=== PATIENT | male | born 1935 | race Caucasian/White ===

== ENCOUNTER 2019-07-18 10:40 | Emergency (ER) | payer MEDICARE ==
[~2019-07-18] VITALS: Ht 177.8 cm; Wt 86.4 kg
[2019-07-18 10:41] VITALS: Ht 177.8 cm; Wt 86.4 kg
[2019-07-18] MEDS ORDERED: ZYLOPRIM100 MG PO (10:43)
[2019-07-18] MEDS ORDERED: XANAX2 MG PO (10:43)
[2019-07-18] MEDS ORDERED: ASPIRIN EC325 M1 PO (10:43)
[2019-07-18] MEDS ORDERED: COENZYME Q10200 MG PO (10:44)
[2019-07-18] MEDS ORDERED: COREG 3.1253.125 MG PO (10:44)
[2019-07-18] MEDS ORDERED: SMZ-TMP DS 800-1 TAB PO (10:45)
[2019-07-18] MEDS ORDERED: VITAMIN B-12500 MCG PO (10:46)
[2019-07-18] MEDS ORDERED: PROSCAR5 MG PO (10:46)
[2019-07-18] MEDS ORDERED: LEXAPRO10 MG PO (10:46)
[2019-07-18] MEDS ORDERED: FISH OIL 1,0001 CA1 PO (10:46)
[2019-07-18] MEDS ORDERED: FUROSEMIDE40 MG PO (10:47)
[2019-07-18] MEDS ORDERED: TOUJEO SOL300 UNIT/1 SC (10:48)
[2019-07-18] MEDS ORDERED: AVAPRO300 MG PO (10:48)
[2019-07-18] MEDS ORDERED: GLUCOPHAGE500 MG PO (10:49)
[2019-07-18] MEDS ORDERED: NYSTATIN OINTME15 GM TOPICAL (10:49)
[2019-07-18] MEDS ORDERED: MULTI-DAY VITAM1 TAB PO (10:49)
[2019-07-18] MEDS ORDERED: TROSPIUM CHLORI20 MG PO (10:49)
[2019-07-18] MEDS ORDERED: ASCORBIC ACID500 MG PO (10:50)
[2019-07-18] MEDS ORDERED: EZETIMIBE-SIMVASTATI PO (10:51)
[2019-07-18] MEDS ORDERED: OXYBUTYNIN CHLOR5 M1 PO (10:52)
[2019-07-18 11:37] LABS: INR 1.2 (0.85-1.17); PROTIME 14.7 SECONDS (11.6-15.0)
[2019-07-18 11:41] LABS: ALBUMIN 2.4 g/dL (3.4-5.0); ANION GAP 27.5 mmol/L (8-16); BILIRUBIN - TOTAL 0.81 mg/dL (0.2-1.3); CALCIUM 8.6 mg/dL (8.5-10.1); CARBON DIOXIDE 14.1 mmol/L (21.0-32.0); CREATININE - SERUM 8.5 mg/dL (0.6-1.3); PROTEIN - SERUM 6.9 g/dL (6.4-8.2)
[2019-07-18 11:51] LABS: POTASSIUM - SERUM 7.6 mmol/L (3.5-5.1)
[2019-07-18 12:12] LABS: HEMOGLOBIN 11.4 g/dL (13.5-17.5); MCH 32.9 pg (26.0-34.0); MCHC 34.5 g/dL (31.0-37.0); MCV 95.4 fL (80.0-100.0); MEAN PLATELET VOLUME 10.7 fL (7.4-10.4); PLATELET COUNT 340 10x3/uL (130-400); RBC 3.46 10x6/uL (4.20-6.10); RDW 13.8 % (11.5-14.5); WBC 26.2 10x3/uL (4.8-10.8)
[2019-07-18 12:37] LABS: APPEARANCE CLOUDY (CLEAR); BACTERIA MANY /hpf (NEGATIVE); BILIRUBIN NEGATIVE (NEGATIVE); COLOR YELLOW (YELLOW); EPITHELIAL CELLS 0-5 /hpf (0-5); GLUCOSE NEGATIVE (NEGATIVE); KETONE SMALL mg/dL (NEGATIVE); MUCUS <1+ /lpf (NONE SEEN); NITRITE NEGATIVE (NEGATIVE); PROTEIN 2+ mg/dL (NEGATIVE); RED CELLS - URINE 0-5 /hpf (0-5); SPECIFIC GRAVITY 1.015 (1.005-1.020); UROBILINOGEN NORMAL (NORMAL); WHITE CELLS - URINE >50 /hpf (NEGATIVE)
[2019-07-18 14:28] LABS: LYMPHOCYTES 10 % (15-50); MONOCYTES 1 % (2-11); NEUTROPHILS 83 % (40-80); PLATELET ESTIMATE NORMAL
[2019-07-18 17:30] VITALS: BP 107/55
== END 2019-07-18 17:28 | disposition other institution (70) ==
LOC: D.ER 10:40
PROVIDERS: Family Medicine
DX: N17.9 Acute kidney failure, unspecified (principal); J69.0 Pneumonitis due to inhalation of food and vomit; E87.5 Hyperkalemia; I25.2 Old myocardial infarction; I10 Essential (primary) hypertension; E11.9 Type 2 diabetes mellitus without complications; Z79.4 Long term (current) use of insulin; Z79.84 Long term (current) use of oral hypoglycemic drugs

== ENCOUNTER → 2019-11-28 17:00 | Outpatient (CLI) | payer MEDICARE ==
[2019-07-18 10:41] VITALS: BMI 27.3
[~2019-11-28 17:00] MED LIST: ASCORBIC ACID500 MG PO; ASPIRIN EC325 M1 PO; AVAPRO300 MG PO; COENZYME Q10200 MG PO; COREG 3.1253.125 MG PO; EZETIMIBE-SIMVASTATI PO; FISH OIL 1,0001 CA1 PO; FUROSEMIDE40 MG PO; GLUCOPHAGE500 MG PO; LEXAPRO10 MG PO; MULTI-DAY VITAM1 TAB PO; NYSTATIN OINTME15 GM TOPICAL; OXYBUTYNIN CHLOR5 M1 PO; PROSCAR5 MG PO; SMZ-TMP DS 800-1 TAB PO; TOUJEO SOL300 UNIT/1 SC; TROSPIUM CHLORI20 MG PO; VITAMIN B-12500 MCG PO; XANAX2 MG PO; ZYLOPRIM100 MG PO
[2019-11-28 19:12] LABS: BILIRUBIN NEGATIVE (NEGATIVE); GLUCOSE NEGATIVE (NEGATIVE); KETONE NEGATIVE (NEGATIVE); NITRITE NEGATIVE (NEGATIVE); SPECIFIC GRAVITY 1.015 (1.005-1.020); UROBILINOGEN NORMAL (NORMAL)
[2019-11-28 19:13] LABS: BACTERIA MODERATE /hpf (NEGATIVE); EPITHELIAL CELLS 0-5 /hpf (0-5); RED CELLS - URINE NONE SEEN /hpf (0-5); WHITE CELLS - URINE 0-5 /hpf (NEGATIVE)
== END | disposition home or self-care (01) ==
LOC: D.LABREF 17:00
PROVIDERS: ATTEND Specialist
DX: N18.3 Chronic kidney disease, stage 3 (moderate) (principal)

== ENCOUNTER → 2020-02-11 21:08 | Outpatient (CLI) | payer MEDICARE ==
[2019-07-18 10:41] VITALS: BMI 27.3
[2020-02-11 22:19] LABS: BASOPHILS 0.1 % (0-2); HEMATOCRIT 27.8 % (42.0-54.0); HEMOGLOBIN 8.8 g/dL (13.5-17.5); IMMATURE GRANULOCYTES 2.8 % (0-5); LYMPHOCYTES 4.7 % (15-50); MCH 31.9 pg (26.0-34.0); MCHC 31.7 g/dL (31.0-37.0); MCV 100.7 fL (80.0-100.0); MEAN PLATELET VOLUME 11.1 fL (7.4-10.4); MONOCYTES 11.9 % (2-11); NEUTROPHILS 79.5 % (40-80); RBC 2.76 10x6/uL (4.20-6.10); RDW 16.6 % (11.5-14.5); WBC 7.2 10x3/uL (4.8-10.8)
[2020-02-11 22:26] LABS: PLATELET COUNT 155 10x3/uL (130-400)
[2020-02-11 22:34] LABS: ALBUMIN 2.2 g/dL (3.4-5.0); ANION GAP 16.1 mmol/L (8-16); BILIRUBIN - TOTAL 0.72 mg/dL (0.2-1.3); CALCIUM 7.1 mg/dL (8.5-10.1); CARBON DIOXIDE 25.1 mmol/L (21.0-32.0); CREATININE - SERUM 7.3 mg/dL (0.6-1.3); POTASSIUM - SERUM 4.2 mmol/L (3.5-5.1)
== END | disposition home or self-care (01) ==
LOC: D.LABREF 21:08
PROVIDERS: ATTEND Specialist
DX: T80.211A Bloodstream infection due to central venous catheter, initial encounter (principal)